=== PATIENT | female | born 1990 | race Caucasian/White ===

== ENCOUNTER 2017-07-21 18:32 | Emergency (ER) | payer OTHER ==
--- NOTE | 2017-07-21 20:38 | RAD ---
HISTORY: Blunt head trauma COMPARISONS: None TECHNIQUE: Multiple contiguous axial CT scans were obtained of the head without intravenous contrast. FINDINGS: HEMORRHAGE/INFARCT: There is no hemorrhage or acute infarct. MASSES/SHIFT: There is no mass or shift. EXTRA-AXIAL SPACES: There are no extra-axial fluid collections. SULCI AND VENTRICLES: The sulci and ventricles are normal in size and position for the patient's stated age. CEREBRUM: There are no focal parenchymal abnormalities. BRAINSTEM: There are no focal parenchymal abnormalities. CEREBELLUM: There are no focal parenchymal abnormalities. VESSELS: The vessels are grossly normal. PARANASAL SINUSES: The paranasal sinuses are clear. ORBITS: The orbits are unremarkable. BONES AND SOFT TISSUE: No bone or soft tissue abnormalities are noted. OTHER: None IMPRESSION: NO ACUTE INTRACRANIAL PATHOLOGY.
[2017-07-21 21:50] VITALS: BP 105/67
--- NOTE | 2017-07-21 23:20 | ED ---
Tobi Bueno Nikita, scribed for Brian Cisneros MD on 07/21/17 at 2308 . Head Injury - HPI Summary HPI Summary: This patient is a 26 year old F presenting to ED with a chief complaint of head injury at [id number]. Pts pony was spooked and ran, taking a PVC pipe with him. Pt was in the way of the pipe and was hit. The patient rates the pain 4/10 in severity. Symptoms aggravated by light. Symptoms alleviated by nothing. Patient reports COLLADO (pain rates 5-6/10 currently), FROM, fatigue, blurred vision ( spontaneously resolved), dizziness, swollen on L temporal of head, tingling of upper lip (spontaneously resolved), and nausea (spontaneously resolved). Patient denies numbness, LOC, and vomiting. - History Of Current Complaint Chief Complaint: EDHeadInjury Stated Complaint: POSS CONCUSSION Time Seen by Provider: 07/21/17 21:52 Hx Obtained From: Patient Hx Last Menstrual Period: 07/15/14 Mechanism Of Injury: Blunt Trauma Onset/Duration: Started Hours Ago, Still Present Onset of Pain: Post Accident Severity Currently: Mild Severity Initially: Mild Pain Intensity: 3 Pain Scale Used: 0-10 Numeric Location of Head Injury: Temporal - L temporal Aggravating Factor(s): Other: - light Alleviating Factor(s): Other: - nothing Associated Signs And Symptoms: Other: - Patient reports COLLADO (pain rates 5-6/10 currently), FROM, fatigue, blurred vision (spontaneously resolved), dizziness, swollen on L temporal of head, tingling of upper lip (spontaneously resolved), and nausea (spontaneously resolved). Patient denies numbness, LOC, and vomiting. - Allergies/Home Medications Allergies/Adverse Reactions: Allergies Allergy/AdvReac Type Severity Reaction Status Date / Time No Known Allergies Allergy Verified 07/04/16 08:50 PMH/Surg Hx/FS Hx/Imm Hx Endocrine/Hematology History: Reports: Hx Anemia - ON IRON Cardiovascular History: Reports: Other Cardiovascular Problems/Disorders - PREVENTRICULAR CONTRACTIONS - NONE SINCE AUGUST 2015 Respiratory History: Reports: Hx Asthma - A CHILD Sensory History: Denies: Hx Contacts or Glasses, Hx Hearing Aid Opthamlomology History: Denies: Hx Contacts or Glasses Psychiatric History: Reports: Other Psychiatric Issues/Disorders - migraine - Surgical History Surgery Procedure, Year, and Place: c section 11/08/12 Hx Anesthesia Reactions: No Infectious Disease History: No Infectious Disease History: Denies: Hx Clostridium Difficile, Hx Hepatitis, Hx Human Immunodeficiency Virus (HIV), Hx of Known/Suspected MRSA, Hx Shingles, Hx Tuberculosis, Hx Known/ Suspected VRE, Hx Known/Suspected VRSA, History Other Infectious Disease, Traveled Outside the [place] in Last 30 Days - Family History Known Family History: Negative: Cardiac Disease, Hypertension, Diabetes - Social History Alcohol Use: Rare Substance Use Type: Reports: None Smoking Status (MU): Former Smoker Type: Cigarettes Amount Used/How Often: 1/2 ppd Length of Time of Smoking/Using Tobacco: 6 years Have You Smoked in the Last Year: Yes Review of Systems Positive: Fatigue Positive: Blurred Vision - resolved Positive: Nausea - resolved. Negative: Vomiting Positive: Other - Swelling on L temporal of head, FROM Neurological: Other - tingling of upper lip (spontaneously resolved), dizziness ; denies LOC Positive: Headache. Negative: Numbness All Other Systems Reviewed And Are Negative: Yes Physical Exam Triage Information Reviewed: Yes Vital Signs On Initial Exam: Initial Vitals Temp Pulse Resp BP Pulse Ox 98.2 F 88 20 115/63 100 07/21/17 18:40 07/21/17 18:40 07/21/17 18:40 07/21/17 18:40 07/21/17 18:40 Vital Signs Reviewed: Yes Appearance: Positive: Well-Appearing, No Pain Distress Skin: Positive: Warm, Skin Color Reflects Adequate Perfusion, Dry, Other - no rash Head/Face: Positive: Other - tender to palpation at L temporal region Eyes: Positive: EOMI, MALOU ENT: Positive: Normal ENT inspection Neck: Positive: Supple, Nontender Respiratory/Lung Sounds: Positive: Clear to Auscultation, Breath Sounds Present Cardiovascular: Positive: RRR Abdomen Description: Positive: Nontender, Soft Bowel Sounds: Positive: Present Musculoskeletal: Positive: Normal, Strength/ROM Intact Neurological: Positive: Normal, Sensory/Motor Intact, Alert, Oriented to Person Place, Time Psychiatric: Positive: Affect/Mood Appropriate - [place] Coma Scale Coma Scale Total: 15 Diagnostics - Vital Signs Vital Signs Temp Pulse Resp BP Pulse Ox 07/21/17 21:50 99.1 F 74 16 105/67 100 07/21/17 18:40 98.2 F 88 20 115/63 100 - Laboratory Lab Statement: Any lab studies that have been ordered have been reviewed, and results considered in the medical decision making process. - CT Head CT Interpretation Completed By: Radiologist - NO ACUTE INTRACRANIAL PATHOLOGY. ED physician has reviewed this radiology report and agrees. Head Injury Course/Dx Assessment/Plan: This patient is a 26 year old F presenting to ED with a chief complaint of head injury at [id number]. Pts pony was spooked and ran, taking a PVC pipe with him. Pt was in the way of the pipe and was hit. The patient rates the pain 4/10 in severity. Symptoms aggravated by light. Symptoms alleviated by nothing. Patient reports COLLADO (pain rates 5-6/10 currently), FROM, fatigue, blurred vision (spontaneously resolved), dizziness, swollen on L temporal of head, tingling of upper lip (spontaneously resolved), and nausea (spontaneously resolved). Patient denies numbness, LOC, and vomiting. Head CT reveals NO ACUTE INTRACRANIAL PATHOLOGY. ED physician has reviewed this radiology report and agrees. Medications reviewed. Pt will be discharged. Pt is agreeable with this plan. DISCUSSED RESULTS WITH PATIENT/PARTNER. NO CRITICAL CARE TIME. - Diagnoses Provider Diagnoses: Head injury, Concussion Discharge - Discharge Plan Condition: Stable Disposition: HOME Patient Education Materials: Concussion (ED), Head Injury (ED) Referrals: Ramandeep Diallo MD [Primary Care Provider] - Additional Instructions: FOLLOW UP WITH YOUR DOCTOR. RETURN TO THE EMERGENCY DEPARTMENT FOR ANY WORSENING OF YOUR CONDITION; WEAKNESS , NUMBNESS, YOU FEEL ILL, UNEXPLAINED VOMITING, CHANGE IN VISION OR SPEECH OR QUESTIONS OR CONCERNS. The documentation as recorded by the Tobi villafuerte Nikita accurately reflects the service I personally performed and the decisions made by me, Brian Cisneros MD.
== END 2017-07-21 22:13 | disposition home or self-care (01) ==
LOC: ED 18:32
DX: S09.90XA Unspecified injury of head, initial encounter (principal); S06.0X9A Concussion with loss of consciousness of unspecified duration, initial encounter; R51 Headache; R53.83 Other fatigue; Z87.891 Personal history of nicotine dependence; H53.8 Other visual disturbances; W22.8XXA Striking against or struck by other objects, initial encounter; Y93.9 Activity, unspecified; Y92.9 Unspecified place or not applicable; R11.0 Nausea
CPT/HCPCS: 70450; 99282